=== PATIENT | male | born 2000 | race Caucasian/White ===

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

== ENCOUNTER 2022-05-16 12:30 | Emergency (ER) | payer MEDICAID ==
[2022-05-16 13:28] VITALS: BP 102/63; PULSE 76
== END 2022-05-16 14:21 | disposition home or self-care (01) ==
LOC: JP.ED 12:30
DX: F41.9 Anxiety disorder, unspecified (principal); F91.9 Conduct disorder, unspecified
CPT/HCPCS: 99284; 99285

== ENCOUNTER 2022-06-29 13:33 | Emergency (ER) | payer MEDICARE, MEDICAID ==
[2022-06-29 14:20] VITALS: BP 116/72; PULSE 95
[2022-06-29 15:02] LABS: ESTIMATED GFR 135 mL/min (>60)
== END 2022-06-29 17:20 | disposition home or self-care (01) ==
LOC: JP.ED 13:33
DX: F98.9 Unspecified behavioral and emotional disorders with onset usually occurring in childhood and adolescence (principal); Z91.048 Other nonmedicinal substance allergy status; Z88.0 Allergy status to penicillin; Z79.899 Other long term (current) drug therapy; Z20.822 Contact with and (suspected) exposure to COVID-19
CPT/HCPCS: 36415; 80048; 85025; 99285; U0002